=== PATIENT | male | born 1990 | race Caucasian/White ===

== ENCOUNTER 2025-02-18 21:21 | Outpatient (CLI) | payer OTHER, SELFPAY | END 2025-02-18 21:22 | disposition home or self-care (01) | PROVIDERS: Visit Provider Family Medicine | DX: S09.92XA Unspecified injury of nose, initial encounter (principal); W22.8XXA Striking against or struck by other objects, initial encounter; Y93.89 Activity, other specified; Y92.89 Other specified places as the place of occurrence of the external cause | CPT/HCPCS: A0998 ==

== ENCOUNTER 2025-02-18 22:34 | Emergency (ER) | payer OTHER, SELFPAY ==
[2025-02-18 22:40] VITALS: BP 145/100; PULSE 86; RESP 18; TEMP 36.8; O2SAT 99
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
[2025-02-18 23:10] VITALS: TEMP 36.8
[2025-02-18] MEDS: ACETAMINOPHEN 500 MG TABLET 1000 MG PO (23:10)
--- OUTSIDE RECORDS SUMMARY | 2025-02-18 23:16 | XMS_ITS | Encounter Summary ---
[facility] Address [address], [place] [address] Care Team Providers Care Slab Off Mill Tender Name Role Phone Unassigned, Provider Primary Care Provider Unava ilable Encounter Details Date Type Department Care Team (Late st Contact Info) Description 03/17/2014 Consent for Procedure/Treatment None No Primary/Referring, Phy DRUG SCREEN RELEASE Social History Tobacco Use Types Packs/Day Years Used Date Smoking Tobacco: Never Assessed Sex and Gender Information Value Date Recorded Sex Assigned at Not on file Legal Sex Male 4:54 AM CDT Gender Identity Not on file Sexual Orientation Not on file documented as of this encounter Plan of Treatment Not on file documented as of this encounter Visit Diagnoses Not on filedocumented in this encounter Care Teams Slab Off Mill Tender Relationship Specialty Start Date End Date Unassigned, Provider [address] [place] [address] PCP - General 07/16/00 documented as of this encounter
--- OUTSIDE RECORDS SUMMARY | 2025-02-18 23:16 | XMS_ITS | Clinical Summary ---
Author Organization [facility] Address [address] [place] [address] Care Team Providers Care Logistics Account Manager Name Role Phone Unassigned, Provider Primary Care Provider Unava ilable Source Comments You are receiving this document as you are listed as the primary care provider,follow-up provider, or the patient has been referred to you for consultation.This is in compliance with the Medicare andMedicaid EHR Incentive Program,which states Providers who transition their patient to another setting of careor provider of care or refers their patient to another provider of care shouldprovide summary care record for each transition of care or referral. [place] [employer] Allergies Active Allergy Reactions Criticality Noted Date Comments Cefaclor 08/10/2018 Medications doxycycline hyclate (VIBRA-TABS) 100 MG tabletIndicatio ns:Rosacea Take 1 Tablet (100 mg) by mouth two times a day. Pharmacy may substitute hyclate or monohydrate tab or capsule based on insurance. 20 Tablet 2 Active clindamycin (CLEOCIN T) 1 % lotionIndicatio ns:Rosacea Apply topically two times a day. 60 mL 11 2 Active Active Problems No known active problems Immunizations Immunization Administration Dates Next Due DTP 08/17/1991 DTaP 03/28/1995 Fluzone Qiv Multidose Vial 0 .25 (6-35 Mos) 05/31/2020,04/28/2019,05/05/2018,2016 HepB Ped/Adol (0-18 yrs) 04/06/2002,01/16/2002 MCV4 (Menactra) 03/21/2008 Family History Relation Name Status Comments Father Alive Mother Alive Social History Tobacco Use Types Packs/Day Years Used Date Smoking Tobacco: Never Smokeless Tobacco: Never Alcohol Use Standard Drinks/Week Comments Yes 0 (1 standard drink = 0.6 oz pur e alcohol) PHQ-2 Answer Date Recorded PHQ-2 Score 0 10/26/2021 Sex and Gender Information Value Date Recorded Sex Assigned at Not on file Legal Sex Male 4:54 AM CDT Gender Identity Not on file Sexual Orientation Not on file Last Filed Vital Signs Vital Sign Reading Time Taken Comments Blood Pressure 120/80 10/26/2021 1:06 PM CDT Pulse 80 10/26/2021 1:06 PM CDT Temperature 36.6 C (97.8 F) 10/26/2021 1:06 PM CDT Respiratory Rate 16 10/26/2021 1:06 PM CDT Oxygen Saturation 98% 10/26/2021 1:06 PM CDT Inhaled Oxygen Concentration - - Weight 71.7 kg (158 lb) 10/26/2021 1:06 PM CDT Height 171.5 cm (5' 7.5) 10/26/2021 1:06 PM CDT Body Mass Index 24.38 10/26/2021 1:06 PM CDT Plan of Treatment Health Maintenance Due Date Last Done Comments Hep C Screening (Preventive Services) 1989 HepB Vaccine (3) 06/01/2002 04/06/2002, 01/16/2002 HIV Screening (Preventive Services) 2005 DTaP/Tdap/Td Vaccine (3 - Tdap) 2008 03/28/1995, 08/17/1991 Adult Preventive Visit 10/27/2023 10/26/2021 COVID-19 Vaccine ( season) 2024 Cholesterol 2024 Influenza Vaccine (#1) 2025 , 04/28/2019, 05/05/2018, Additional history exists Zoster/Shingles Vaccine (1 of 2) 10/16/2039 MCV4 Vaccine Completed 03/21/2008 HPV Vaccine Aged Out No longer eligi ble based on patient's age to complete this topic HepA Vaccine Aged Out No longer eligi ble based on patient's age to complete this topic Hib Vaccine Aged Out No longer eligi ble based on patient's age to complete this topic IPV (Polio) Vaccine Aged Out No longe r eligible based on patient's age to complete this topic Meningococcal B Vaccine Aged Out No l onger eligible based on patient's age to complete this topic Pneumococcal Vaccine Aged Out No long er eligible based on patient's age to complete this topic Insurance FULL[employer] INSURED Care Teams Logistics Account Manager Relationship Specialty Start Date End Date Unassigned, Provider [address] [place] [address] PCP - General 07/16/00
--- OUTSIDE RECORDS SUMMARY | 2025-02-18 23:16 | XMS_ITS | Encounter Summary ---
Author Organization [facility] Address [address] [address] Care Team Providers Care Cup Setter Lockstitch Name Role Phone Unassigned, Provider Primary Care Provider Unava ilable Encounter Details Date Type Department Care Team (Late st Contact Info) Description 08/25/2015 Correspondence None No Primary/Referring, Phy RESPIRATOR CERTIFICATION QUESTIONNAIRE Social History Tobacco Use Types Packs/Day Years [...] on filedocumented in this encounter Care Teams Cup Setter Lockstitch Relationship Specialty Start Date End Date Unassigned, Provider [address] [place] [address] PCP - General 07/16/00 documented as of this encounter
--- OUTSIDE RECORDS SUMMARY | 2025-02-18 23:16 | XMS_ITS | Encounter Summary ---
Author Organization [facility] Address [address] [address] Care Team Providers Care Travel Manager Name Role Phone Unassigned, Provider Primary Care Provider Unava ilable Encounter Details Date Type Department Care Team (Late st Contact Info) Description 10/20/2013 Correspondence None No Primary/Referring, Phy RESPIRATOR CERTIFICATION EVALUATION QUESTIONNAIRE Social History Tobacco Use Types Packs/Day [...] on filedocumented in this encounter Care Teams Travel Manager Relationship Specialty Start Date End Date Unassigned, Provider [address] [place] [address] PCP - General 07/16/00 documented as of this encounter
--- OUTSIDE RECORDS SUMMARY | 2025-02-18 23:16 | XMS_ITS | Clinical Summary ---
Author Organization [facility] Address [address] [place] [address] Care Team Providers Care Personal Banking Advisor Name Role Phone Clinic, No Pcp Or Primary Care Provider Unavaila ble Allergies Active Allergy Reactions Criticality Noted Date Comments Cefaclor *Unknown - Pt Doesn't Remember 08/10 Medications HYDROcodone-acetam inophen, 5-325 mg, (NORCO) per tabletIndications: Acute back pain, unspecified back location, unspecified back pain laterality Take 1 tablet by mouth every 4 hours if needed for Pain Max acetaminophen dose: 4000 mg in 24 hrs. 10 tablet 11/11/19 19 Active oxyCODONE 5 mg immediate release tablet 11/26/19 25 Active ondansetron 4 mg disintegrating tablet 11/26/19 25 Active mupirocin 2% ointment 11/26/19 25 Active hydrOXYzine HCL 25 mg tablet 11/26/19 25 Active clindamycin 300 mg capsule 11/26/19 25 Active Encounters Date Type Department Care Team Description 11/30/2024 Telephone [facility] [address] [place] [address] Lea Sullivan PA Results 11/26/2024 3:15 PM CDT Office Visit [facility] [address] [place] [address] Lea Sullivan PA Pre-Op Exam (DOS 11/30/24) 11/26/2024 Travel from Last 3 Months Immunizations Immunization Administration Dates Next Due DTP 08/17/1991 DTaP 03/28/1995 Hepatitis B (Peds) 04/06/2002,01/16/2002 Influenza, IIV4 (=>6mos) MDV 05/31/2020,04/28/20 19,05/05/2018,05/21/2017 Meningococcal Vaccine (Menactra) 03/21/2008 Social History Tobacco Use Types Packs/Day Years Used Date Smoking Tobacco: Never Smokeless Tobacco: Current Chew Tobacco Cessation:Ready to Q uit: No; Counseling Given: No Alcohol Use Standard Drinks/Week Comments Yes 3 (1 standard drink = 0.6 oz pur e alcohol) Social Connections Answer Date Recorded Do you often feel lonely or isolated from those around you? 0 11/26/2024 Financial Resource Strain Answer Date R ecorded Difficulty of Paying Living Expenses 3 11/26/2024 Difficulty of Paying Living Expenses Not on file 11/26/2024 Food Insecurity Answer Date Recorded Do you worry your food will run out before you are able to buy more? 1 11/26/2024 Transportation Needs Answer Date Record ed Does lack of transportation keep you from medica l appointments? 1 11/26/2024 Does lack of transportation keep you from work, meetings or getting things that you need? 1 11/26/2024 Housing Stability Answer Date Recorded What is your housing situation today? 1 11/26/2024 Utilities Answer Date Recorded Do you have trouble paying f or utilities (for example, heat, electricity, water, phone)? 1 11/26/2024 Sex and Gender Information Value Date Recorded Sex Assigned at Not on file Legal Sex Male 11:45 AM CDT Gender Identity Not on file Sexual Orientation Not on file Obstetrics History Last Filed Vital Signs Vital Sign Reading Time Taken Comments Blood Pressure 129/80 11/26/2024 3:19 PM CDT Pulse 74 11/26/2024 3:19 PM CDT Temperature 36.9 C (98.4 F) 11/26/2024 3:19 PM CDT Respiratory Rate 18 07/01/2022 7:22 PM OPTOMETRY PROFESSOR Oxygen Saturation 98% 11/26/2024 3:19 PM CDT Inhaled Oxygen Concentration - - Weight 69.1 kg (152 lb 4.8 oz) 11/26/2024 3:19 P M CDT Height 172.7 cm (5' 8) 11/26/2024 3:19 PM CDT Body Mass Index 23.16 11/26/2024 3:19 PM CDT Plan of Treatment Health Maintenance Due Date Last Done Comments Tetanus booster 2000 Depression screening for age 12+ 2001 Hepatitis B series for 19+ (3 of 3 - 3-dose series) 06/01/2002 04/06/2002, 01/16/2002 HIV for age 15-65 2004 Hepatitis C screening for age 18-79 10/16/2007 COVID-19 vaccine series ( - 2023- season) 2024 Lipids for age 35-44 2024 Influenza Vaccine (#1) 2025 , 04/28/2019, 05/05/2018, Additional history exists BMI (ht and wt on same day) for age 18+ 11/26/2025 11/26/2024 Pneumococcal series for age 6-49 Aged Out No longer eligible based on patient's age to complete this topic Procedures Procedure Name Priority Date/Time Associated Diagnosis Comments CBC WITH AUTO DIFFERENTIAL Routine 11/26/2024 3:41 PM CDT Pre-op exam Cervical disc herniation CBC WITH AUTO DIFFERENTIAL Routine 11/26/2024 3:41 PM CDT Pre-op exam Cervical disc herniation BASIC METABOLIC PANEL Routine 11/26/2024 3:41 PM CDT Pre-op exam Cervical disc herniation from Last 3 Months Results * CBC WITH AUTO DIFFERENTIAL (11/26/2024 3:41 PM CDT) WHITE BLOOD CELL COUNT 8.0 3.8 - 10.8 Thousand/u L 11/27/2024 7:17 AM CDT [facility] RED BLOOD CELL COUNT 4.86 4.20 - 5.80 Million/uL 11/27/2024 7:17 AM CDT [facility] HEMOGLOBIN 15.6 13.2 - 17.1 g/dL 11/27/2024 7:17 AM CDT [facility] HEMATOCRIT 46.6 38.5 - 50.0 % 11/27/2024 7:17 AM CDT [facility] MCV 95.9 80.0 - 100.0 fL 11/27/2024 7:17 AM CDT [facility] MCH 32.1 27.0 - 33.0 pg 11/27/2024 7:17 AM CDT [facility] MCHC 33.5 32.0 - 36.0 g/dL 11/27/2024 7:17 AM CDT [facility] Comment: For adults, a slight decrease in the calculated MCHC value (in the range of 30 to 32 g/dL) is most likely not clinically significant; however, it should be interpreted with caution in correlation with other red cell parameters and the patient's clinical condition. RDW 12.6 11.0 - 15.0 % 11/27/2024 7:17 AM CDT [facility] PLATELET COUNT 239 140 - 400 Thousand/u L 11/27/2024 7:17 AM CDT [facility] MPV 10.6 7.5 - 12.5 fL 11/27/2024 7:17 AM CDT [facility] NEUTROPHILS 69.6 % 11/27/2024 7:17 AM CDT [facility] LYMPHOCYTES 18.7 % 11/27/2024 7:17 AM CDT [facility] MONOCYTES 10.7 % 11/27/2024 7:17 AM CDT [facility] EOSINOPHILS 0.6 % 11/27/2024 7:17 AM CDT [facility] BASOPHILS 0.4 % 11/27/2024 7:17 AM CDT [facility] ABSOLUTE NEUTROPHILS 5568 1500 - 7800 cells/uL 11/27/2024 7:17 AM CDT [facility] ABSOLUTE LYMPHOCYTES 1496 850 - 3900 cells/uL 11/27/2024 7:17 AM CDT [facility] ABSOLUTE MONOCYTES 856 200 - 950 cells/uL 11/27/2024 7:17 AM CDT [facility] ABSOLUTE EOSINOPHILS 48 15 - 500 cells/uL 11/27/2024 7:17 AM CDT [facility] ABSOLUTE BASOPHILS 32 0 - 200 cells/uL 11/27/2024 7:17 AM CDT [facility] Blood BLOOD SPECIMEN / Unknown Non-Lab Venipuncture / Unknown 11/26/2024 3:41 PM CDT 11/26/2024 3:41 PM CDT us Lea AKERS HEMATOLOGY Final R esult [facility] [address] [place] [address], [place] [phone] * BASIC METABOLIC PANEL (11/26/2024 3:41 PM CDT) SODIUM 139 135 - 146 mmol/L 11/27/2024 7:56 AM CDT [facility] POTASSIUM 4.3 3.5 - 5.3 mmol/L 11/27/2024 7:56 AM CDT [facility] CARBON DIOXIDE 29 20 - 32 mmol/L 11/27/2024 7:56 AM CDT [facility] GLUCOSE 83 65 - 99 mg/dL 11/27/2024 7:56 AM CDT [facility] Comment: Fasting reference interval CALCIUM 10.1 8.6 - 10.3 mg/dL 11/27/2024 7:56 AM CDT [facility] CREATININE 1.08 0.60 - 1.26 mg/dL 11/27/2024 7:56 AM CDT [facility] BUN/CREATININE RATIO SEE NOTE: 6 (calc) 11/27/2024 7:56 AM CDT [facility] Comment: Not Reported: BUN and Creatinine are within reference range. EGFR 92 > OR = 60 mL/min/1. 73m2 11/27/2024 7:56 AM CDT [facility] UREA NITROGEN (BUN) 11 7 - 25 mg/dL 11/27/2024 7:56 AM CDT [facility] ELECTROLYTE BALANCE 8 7 - 17 mmol/L (calc) 11/27/2024 7:56 AM CDT [facility] CHLORIDE 102 98 - 110 mmol/L 11/27/2024 7:56 AM CDT [facility] Blood BLOOD SPECIMEN / Unknown Non-Lab Venipuncture / Unknown 11/26/2024 3:41 PM CDT 11/26/2024 3:41 PM CDT Lea AKERS CHEMISTRY Final R esult [facility] [address] [place] [address], [place] [phone] from Last 3 Months Insurance [place] [id number] WC CCMSI NON-XCEL EMP [employer]AV[employer] [place]OR[place]IL[place] [address] [facility] [place] [id number] Care Teams Personal Banking Advisor Relationship Specialty Start Date End Date Clinic, No Pcp Or . PCP - General 11/10/18
--- OUTSIDE RECORDS SUMMARY | 2025-02-18 23:16 | XMS_ITS | Encounter Summary ---
Author Organization [facility] Address [address] [address] Care Team Providers Care Jai Alai Player Name Role Phone Unassigned, Provider Primary Care Provider Unava ilable Encounter Details Date Type Department Care Team (Late st Contact Info) Description 06/06/2015 Correspondence [facility] [place], [place] [address] [facility] MED NOTES Social History Tobacco Use Types Packs/Day Years [...] on filedocumented in this encounter Care Teams Jai Alai Player Relationship Specialty Start Date End Date Unassigned, Provider [address] [place] [address] PCP - General 07/16/00 documented as of this encounter
--- OUTSIDE RECORDS SUMMARY | 2025-02-18 23:16 | XMS_ITS | Encounter Summary ---
Author Organization [facility] Address [address] [address] Care Team Providers Care Glass Driller Name Role Phone Unassigned, Provider Primary Care Provider Unava ilable Encounter Details Date Type Department Care Team (Late st Contact Info) Description 09/13/2014 Correspondence None No Primary/Referring, Phy RESPIRATOR CERTIFICATION [...] on filedocumented in this encounter Care Teams Glass Driller Relationship Specialty Start Date End Date Unassigned, Provider [address] [place] [address] PCP - General 07/16/00 documented as of this encounter
--- OUTSIDE RECORDS SUMMARY | 2025-02-18 23:16 | XMS_ITS | Encounter Summary ---
Author Organization [facility] Address [address] [address] Care Team Providers Care Psychological Assistant Name Role Phone Unassigned, Provider Primary Care Provider Unava ilable Encounter Details Date Type Department Care Team (Late st Contact Info) Description 08/26/2016 Correspondence None No Primary/Referring, Phy RESPIRATOR CERTIFICATION [...] on filedocumented in this encounter Care Teams Psychological Assistant Relationship Specialty Start Date End Date Unassigned, Provider [address] [place] [address] PCP - General 07/16/00 documented as of this encounter
--- OUTSIDE RECORDS SUMMARY | 2025-02-18 23:16 | XMS_ITS | Encounter Summary ---
[facility] Address [address] [address] Care Team Providers Care Director Of Residential Services Name Role Phone Unassigned, Provider Primary Care Provider Unava ilable Encounter Details Date Type Department Care Team (Late st Contact Info) Description 08/24/2018 Correspondence None No Primary/Referring, Phy RESPIRATOR CLEARANCE EVALUATION Social History Tobacco Use Types Packs/Day Years Used Date Smoking Tobacco: Never Smokeless Tobacco: Never Sex and Gender Information Value Date Recorded Sex Assigned at Not on file Legal Sex Male 4:54 AM CDT Gender Identity Not on file Sexual Orientation Not on file documented as of this encounter Plan of Treatment Not on file documented as of this encounter Visit Diagnoses Not on filedocumented in this encounter Care Teams Director Of Residential Services Relationship Specialty Start Date End Date Unassigned, Provider [address] [place] [address] PCP - General 07/16/00 documented as of this encounter
--- OUTSIDE RECORDS SUMMARY | 2025-02-18 23:16 | XMS_ITS | Encounter Summary ---
Author Organization [facility] Address [address] [address] Care Team Providers Care Emissions Engineer Name Role Phone Unassigned, Provider Primary Care Provider Unava ilable Encounter Details Date Type Department Care Team (Late st Contact Info) Description 08/27/2017 Correspondence None No Primary/Referring, Phy RESPIRATOR CERTIFICATION [...] on filedocumented in this encounter Care Teams Emissions Engineer Relationship Specialty Start Date End Date Unassigned, Provider [address] [place] [address] PCP - General 07/16/00 documented as of this encounter
--- OUTSIDE RECORDS SUMMARY | 2025-02-18 23:16 | XMS_ITS | Encounter Summary ---
Author Organization [facility] Address [address] [address] Care Team Providers Care Manager Group Name Role Phone Unassigned, Provider Primary Care Provider Unava ilable Encounter Details Date Type Department Care Team (Late st Contact Info) Description 01/25/2013 Consent for Procedure/Treatment None No Primary/Referring, Phy DRUG SCREEN RELEASE Social History Tobacco Use Types Packs/Day Years Used Date Smoking Tobacco: Never Assessed Sex and Gender Information Value Date Recorded Sex Assigned at Not on file Legal Sex Male 4:54 AM CDT Gender Identity Not on file Sexual Orientation Not on file documented as of this encounter Progress Notes * No Primary/Referring, Phy - 01/25/2013 12:00 AM CDT documented in this encounter Plan of Treatment Not on file documented as of this encounter Visit Diagnoses Not on filedocumented in this encounter Care Teams Manager Group Relationship Specialty Start Date End Date Unassigned, Provider [address] [place] [address] PCP - General 07/16/00 documented as of this encounter
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
[2025-02-19 00:29] VITALS: BP 135/74; PULSE 81; RESP 18; TEMP 36.8; O2SAT 99
[2025-02-19 00:31] VITALS: BP 135/74; PULSE 81; RESP 18; TEMP 36.8
== END 2025-02-19 00:31 | disposition home or self-care (01) ==
PROVIDERS: Emergency Provider Family Medicine
DX: S02.2XXA Fracture of nasal bones, initial encounter for closed fracture (principal); S01.21XA Laceration without foreign body of nose, initial encounter; W20.8XXA Other cause of strike by thrown, projected or falling object, initial encounter; Y99.0 Civilian activity done for income or pay
CPT/HCPCS: 70486; 99283; 99284; A9270